=== PATIENT | female | born 1985 | race American Indian/Alaskan Native ===

== ENCOUNTER 2017-11-19 04:09 | Emergency (ER) | payer MEDICAID | END 2017-11-19 06:00 | disposition left against medical advice (07) | LOC: ED 04:09 | DX: R10.9 Unspecified abdominal pain (principal); Z53.21 Procedure and treatment not carried out due to patient leaving prior to being seen by health care provider ==

== ENCOUNTER 2018-02-24 19:25 | Emergency (ER) | payer OTHER, MEDICAID ==
[2018-02-24 20:31] VITALS: BP 133/98
[2018-02-24] MEDS ORDERED: MOTRIN PO ONE ×3 (20:31→22:40)
[2018-02-24] MEDS ORDERED: FLEXERIL ONE (22:37)
[2018-02-24] MEDS ORDERED: FLEXERIL PO ONE (22:40)
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
== END 2018-02-25 00:15 | disposition home or self-care (01) ==
LOC: ED 19:25
DX: M54.5 Low back pain (principal); M25.511 Pain in right shoulder; M25.512 Pain in left shoulder; M54.2 Cervicalgia; F41.0 Panic disorder [episodic paroxysmal anxiety]; V89.2XXA Person injured in unspecified motor-vehicle accident, traffic, initial encounter; Y93.89 Activity, other specified; Y92.89 Other specified places as the place of occurrence of the external cause; Y99.8 Other external cause status
CPT/HCPCS: 72040; 72100

== ENCOUNTER 2019-01-20 11:43 | Outpatient (CLI) | payer MEDICAID ==
[2019-01-20 12:05] VITALS: BP 121/82
[2019-01-20] MEDS ORDERED: LACTATED RINGERS 500 ML IV ONE (12:49)
[2019-01-20 12:51] LABS: Bacteria,Urine 1+ /HPF (Negative); Bilirubin,Urine NEG (Negative); Blood,Urine SM (Negative); Color,Urine Yellow (Yellow); Mucus,Urine FEW /HPF; Protein,Urine <15 mg/dL mg/dL (Negative); Urobilinogen,Urine < 2.0 mg/dL (<2.0)
--- NOTE | 2019-01-20 15:29 | Ultrasound Report ---
ULTRASOUND BIOPHYSICAL PROFILE: History: Decreased movement Technique: Transabdominal ultrasound with Doppler interrogation. 2 - breathing movements 2 - movements 2 - posture and tone 2 - Qualitative amniotic fluid volume 8 - TOTAL SCORE OF POSSIBLE 8 Heart Rate (bpm) 150
== END 2019-01-20 15:29 | disposition home or self-care (01) ==
LOC: TRG 11:43
PROVIDERS: ATTEND Obstetrics & Gynecology
DX: O47.03 False labor before 37 completed weeks of gestation, third trimester (principal); Z3A.30 30 weeks gestation of pregnancy
CPT/HCPCS: 59025; 76819; 81001

== ENCOUNTER 2019-02-19 09:55 | Outpatient (CLI) | payer MEDICAID ==
[2019-02-19] MEDS ORDERED: LACTATED RINGERS 500 ML IV ONE (10:32)
[2019-02-19 11:03] LABS: Bacteria,Urine 2+ /HPF (Negative)
[2019-02-19 11:05] LABS: Bilirubin,Urine Negative (Negative); Blood,Urine Negative (Negative); Color,Urine Yellow (Yellow)
[2019-02-19 11:06] LABS: Protein,Urine <15 mg/dL mg/dL (Negative); Urobilinogen,Urine < 2.0 mg/dL (<2.0)
[2019-02-19 11:12] LABS: Hematocrit 36.5 % (30.3-42.9); Hemoglobin 12.4 gm/dl (10.1-14.3); Mean Corpuscular HGB Conc 34 % (30-34); Mean Corpuscular Volume 91 fl (79-97); Platelet Count 305 K/mm3 (140-440); Red Blood Count 4.02 M/mm3 (3.65-5.03); Red Cell Distribution Width 13.3 % (13.2-15.2)
[2019-02-19] MEDS ORDERED: APRESOLINE IV PRN (11:29)
[2019-02-19 11:30] LABS: Alanine Aminotransferase 12 units/L (7-56); Uric Acid 4.7 mg/dL (3.5-7.6)
[2019-02-19] MEDS ORDERED: NORMODYNE PO SCH (12:00)
[2019-02-19 12:33] VITALS: BP 133/93
== END 2019-02-19 12:59 | disposition home or self-care (01) ==
LOC: TRG 09:55
PROVIDERS: ATTEND Obstetrics & Gynecology
DX: O47.03 False labor before 37 completed weeks of gestation, third trimester (principal); O13.3 Gestational [pregnancy-induced] hypertension without significant proteinuria, third trimester; Z3A.34 34 weeks gestation of pregnancy
CPT/HCPCS: 36415; 81001; 82565; 83615; 84450; 84460; 84550; 85027